=== PATIENT | female | born 1990 | race Caucasian/White ===

== ENCOUNTER 2018-02-15 11:15 | Emergency (ER) | payer OTHER, SELFPAY ==
[2018-02-15 11:16] VITALS: BP 155/95; PULSE 87; RESP 18; TEMP 36.4; O2SAT 99; BMI 26.8
[2018-02-15 12:33] LABS: Absolute Lymphocyte Count 1.52 X10^3/ul (0.83-4.51); Absolute Neutrophil Count 5.8 X10^3/uL (2.0-7.7); Basophil# 0.01 X10^3/uL; Basophil% 0.1 % (0-1); Eosinophil# 0.03 X10^3/uL; Eosinophils% 0.4 % (0-5); Hematocrit 41.7 % (37-47); Hemoglobin 13.8 g/dl (12.0-15.0); Lymphocyte # 1.52 X10^3/ul (4.0); Lymphocyte % 19.3 % (19-41); Mean Corp Hgb Conc 33.1 g/gl (32-36); Mean Corpuscular Hgb 30.3 pg (27.0-32.0); Mean Corpuscular Volume 91.6 fL (81-99); Mean Platelet Vol. 10.6 fl (6.2-12.0); Monocyte# 0.46 X10^3/uL; Monocyte% 5.9 % (0-10); Neutrophil # 5.83 X10^3/uL (2.7-7.7); Neutrophil % 74.2 % (47-70); Platelet Count 289 K/mm3 (150-450); RBC Distribution Width CV 12.8 % (11.6-14.6); RBC Distribution Width SD 42.5 fl (35.1-43.9); Red Blood Count 4.55 M/mm3 (4.2-5.4); White Blood Count 7.9 K/mm3 (4.4-11.0)
[2018-02-15 12:34] LABS: POSITIVE COUNT NO; POSITIVE DIFFERENTIAL NO; POSITIVE MORPHOLOGY NO
--- NOTE | 2018-02-15 12:37 | ED.VISSUMM ---
- ER Visit Summary Date of Service: 02/15/18 Chief Complaint: Severe upper abdominal pain that started last evening at 1900. History of Present Illness: The patient is a 27 F who presents with upper abdominal pain that started last evening at 2100. She ate food from supposedly hours before. Sister had her gallbladder removed age 21. She denies any intolerance to greasy or fried foods. She denies radiation of the pain to her back or shoulders. She denies fever, chills night sweats. She denies chest pain. She denies cough, shortness of breath or difficulty breathing. She denies vomiting or diarrhea. She denies black or maroon stool. She denies any history of trauma. Please read written note for complete detail Physical Examination: Blood pressure is elevated 155/95. She was crying. During the history and physical she began to cry again. Head is atraumatic normocephalic. Pupils are equal round reactive. Extraocular muscles are intact. TMs are pearly white with landmarks noted. Nares patent with no drainage. Posterior pharynx without erythema or exudate. Uvula is midline. There is no dysphonia or dysphasia. Trachea is midline. There is no stridor with auscultation of the neck. Heart is regular without murmur, gallop or rub. S1 and S2 are normal. Lungs are clear to auscultation with good movement of air bilaterally. Abdomen is remarkable tenderness in the epigastric region. There is no hepatosplenomegaly and there is no Zafar sign. There are no skin lesions noted. There is no CVA tenderness noted. Bowel sounds are present diminished. Test Results: See, hepatic and lipase are all normal. Emergency Department Course and Treatment: To evaluate patient's epigastric pain in light of family history cholelithiasis a CBC, hepatic and lipase were obtained. She was treated with IV Pepcid. She was reassessed at 12:15 and reports Pepcid had no effect. She was informed if her blood work is normal she will receive a GI cocktail. She was told the GI cocktail was not given initially in the event that she needs an ultrasound to complicate that issue and potentially make the ultrasound nondiagnostic. Since patient did not have much improvement with Pepcid she was given a GI cocktail. She was reassessed after talking with her she began to cry. Patient was informed the cause of her pain is not known. This may represent gastritis versus an ulcer. Will treat with appropriate medicine and have her follow-up with her primary care physician. Treatment Plan: Pepcid 20 mg twice daily ?1 month Disposition: Discharged home with outpatient follow-up with PCP and potential further diagnostic testing Impression: Gastric pain uncertain etiology (gastritis versus peptic ulcer disease versus other etiology) This note was generated with [employer] dictation software. It may contain incorrect words, spelling, and punctuation that were not noted in review of the chart prior to signing ED Disposition - Plan for ED Patient: Disposition: Home or Assisted Living Chief Complaint: Abd Pain Instructions: ED Epigastric Pain [facility] Prescriptions: Famotidine [Pepcid] 20 mg PO BID #60 tab Referrals: [facility] Doctor,Out of [Primary Care Provider] - 1-2 Weeks
[2018-02-15 12:44] LABS: AST(SGOT) 16 U/L (15-37); Alanine Aminotransfer ALT/SGPT 18 U/L (13-56); Albumin, Serum 4.2 g/dL (3.2-5.0); Alkaline Phosphatase 53 U/L (45-117); Bilirubin, Direct 0.14 mg/dL (0.00-0.30); Globulin 3.3 g/dL (2.2-4.2); Lipase 107 U/L (73-393); Protein, Total 7.5 g/dL (6.4-8.2)
[2018-02-15 13:21] VITALS: PULSE 85; RESP 15; O2SAT 100
[2018-02-15 14:46] VITALS: RESP 14
== END 2018-02-15 14:46 | disposition home or self-care (01) ==
PROVIDERS: Emergency Provider Emergency Medicine
DX: R10.13 Epigastric pain (principal)
CPT/HCPCS: 80076; 83690; 85025; 96365; 99283; J7050; A4216; J3490